=== PATIENT | female | born 1970 | race American Indian/Alaskan Native ===

== ENCOUNTER 2019-01-16 08:44 | Observation (INO) | payer OTHER ==
--- NOTE | 2019-01-16 08:49 | Event Note ---
ED Screening Note ED Screening Note: new onset esrd with hd on sat Told by Dr Rivera to come here for HD vascath r subclavian no sob no cp pmh dm htn eskd hpld This initial assessment/diagnostic orders/clinical plan/treatment(s) is/are subject to change based on patients health status, clinical progression and re- assessment by fellow clinical providers in the ED. Further treatment and workup at subsequent clinical providers discretion. Patient/guardian urged not to elope from the ED as their condition may be serious if not clinically assessed and managed. Initial orders include:
--- NOTE | 2019-01-16 09:06 | Emergency Department Report ---
ED General Adult HPI - General Chief complaint: Recheck/Abnormal Lab/Rx Stated complaint: DIALYSIS Time Seen by Provider: 01/16/19 08:59 Source: patient Mode of arrival: Ambulatory Limitations: No Limitations - History of Present Illness Initial comments: Patient is a 48-year-old that presents emergency room for dialysis. Patient states her last dialysis on Saturday. Patient states she's had 7 treatments with [facility] and was discharged home from [facility] and they told her to go to a local ER for more treatments. Patient denies any physical complaints. Patient states she just simply needs to have her dialysis done. -: Sudden Consistency: constant Improves with: other (with dialysis) Worsens with: none Associated Symptoms: denies other symptoms. denies: confusion, chest pain, cough, diaphoresis, fever/chills, headaches, loss of appetite, malaise, nausea/vomiting, rash, seizure, shortness of breath, syncope, weakness Treatments Prior to Arrival: none - Related Data Allergies Allergy/AdvReac Type Severity Reaction Status Date / Time No Known Allergies Allergy Unverified 04/26/16 09:34 ED Review of Systems ROS: Stated complaint: DIALYSIS Other details as noted in HPI Constitutional: denies: chills, fever Eyes: denies: eye pain, eye discharge, vision change ENT: denies: ear pain, throat pain Respiratory: denies: cough, shortness of breath, wheezing Cardiovascular: denies: chest pain, palpitations Endocrine: no symptoms reported Gastrointestinal: denies: abdominal pain, nausea, diarrhea Genitourinary: denies: urgency, dysuria, discharge Musculoskeletal: denies: back pain, joint swelling, arthralgia Skin: denies: rash, lesions Neurological: denies: headache, weakness, paresthesias Psychiatric: denies: anxiety, depression Hematological/Lymphatic: denies: easy bleeding, easy bruising ED Past Medical Hx - Past Medical History Previous Medical History?: Yes Hx Hypertension: Yes Hx Diabetes: Yes Hx Renal Disease: Yes - Surgical History Past Surgical History?: Yes Additional Surgical History: VAS CATH - Family History Family history: no significant - Social History Smoking Status: Never Smoker Substance Use Type: None ED Physical Exam - General Limitations: No Limitations General appearance: alert, in no apparent distress - Head Head exam: Present: atraumatic, normocephalic - Eye Eye exam: Present: normal appearance - ENT ENT exam: Present: mucous membranes moist - Neck Neck exam: Present: normal inspection - Respiratory Respiratory exam: Present: normal lung sounds bilaterally. Absent: respiratory distress - Cardiovascular Cardiovascular Exam: Present: regular rate, normal rhythm. Absent: systolic murmur, diastolic murmur, rubs, gallop - GI/Abdominal GI/Abdominal exam: Present: soft, normal bowel sounds - Extremities Exam Extremities exam: Present: normal inspection - Back Exam Back exam: Present: normal inspection - Neurological Exam Neurological exam: Present: alert, oriented X3 - Psychiatric Psychiatric exam: Present: normal affect, normal mood - Skin Skin exam: Present: warm, dry, intact, normal color. Absent: rash ED Course Vital Signs 01/16/19 01/16/19 08:49 09:20 Temperature 97.4 F L Pulse Rate 91 H Respiratory 18 Rate Blood Pressure 146/50 O2 Sat by Pulse 100 100 Oximetry - Reevaluation(s) Reevaluation #1: Discussed all results with patient. Patient will be admitted to the hospitalist service. Patient agrees to plan of care. 01/16/19 11:49 - Consultations Consultation #1: Nephrology paged. I discussed the case with nephrology. Dr. Suresh lazar wants patient admitted for dialysis and to establish outpatient dialysis clinic. 01/16/19 11:40 Consultation #2: Hospitalist consulted for admission. Hospitalist to admit patient. Hospitalist to assume care patient. 01/16/19 11:49 ED Medical Decision Making - Lab Data Result diagrams: 01/16/19 09:12 01/16/19 Unknown - Medical Decision Making Patient is a 48-year-old female Emergency room for dialysis. Patient is asymptomatic. Patient states she was told her to come to have her dialysis where she usually gets her dialysis at [facility]. Patient has not established herself with an outpatient dialysis clinic. Patient will be admitted to the hospitalist service. I discussed the case with nephrology nephrology was decreased to have dialysis here. Patient's labs were unremarkable except for consistent findings of end-stage renal disease to include anemia and elevated creatinine. - Differential Diagnosis dialysis. Critical care attestation.: If time is entered above; I have spent that time in minutes in the direct care of this critically ill patient, excluding procedure time. ED Disposition Clinical Impression: End stage renal disease CKD (chronic kidney disease) Qualifiers: Chronic kidney disease stage: stage 5, not on chronic dialysis Qualified Code(s): N18.5 - Chronic kidney disease, stage 5 Disposition: DC-09 OP ADMIT IP TO THIS HOSP Is pt being admited?: Yes Does the pt Need Aspirin: No Condition: Serious Time of Disposition: 11:52
[2019-01-16 09:34] LABS: Hematocrit 29.2 % (30.3-42.9); Hemoglobin 9.5 gm/dl (10.1-14.3); Mean Corpuscular HGB Conc 32 % (30-34); Mean Corpuscular Volume 80 fl (79-97); Platelet Count 224 K/mm3 (140-440); Red Blood Count 3.65 M/mm3 (3.65-5.03)
[2019-01-16 10:21] LABS: Alanine Aminotransferase TNR units/L (7-56); Albumin TNR g/dL (3.9-5); BUN/Creatinine Ratio TNR; Blood Urea Nitrogen TNR mg/dL (7-17); Calcium TNR mg/dL (8.4-10.2)
[2019-01-16 10:22] LABS: Hemolysis Index TNR
[2019-01-16 10:48] LABS: Albumin 3.5 g/dL (3.9-5); Calcium 9.3 mg/dL (8.4-10.2)
[2019-01-16] MEDS ORDERED: NACL 0.9% 100 ML IV PRN ×2 (13:34→14:12)
[2019-01-16] MEDS ORDERED: HEPARIN 10,000 UNITS/10 ML IV PRN ×2 (13:34)
[2019-01-16] MEDS ORDERED: PROCRIT SUB-Q PRN (13:37)
[2019-01-16 15:11] LABS: Hepatitis B Surface Antigen Non-Reactive (Negative); Hepatitis C Virus Antibody Non-Reactive (NonReactive)
--- NOTE | 2019-01-16 19:32 | History and Physical Report ---
History of Present Illness Date of examination: 01/16/19 Date of admission: 01/16/19 11:52 Chief complaint: wants HD History of present illness: Patient is a 48-year-old that presents emergency room for dialysis. Patient states her last dialysis on Saturday. Patient states she's had 7 treatments with [facility] and was discharged home from [facility] and they told her to go to a local ER for more treatments. Patient denies any physical complaints. Patient states she just simply needs to have her dialysis done. Apparently [facility] did not arrange for a HD chair. No orthopnea No fever or chills Past Medical History Previous Medical History?: Yes Hypertension: Yes Diabetes: Yes Renal Disease: Yes Surgical History Past Surgical History?: Yes Additional Surgical History: VAS CATH Family History Family history: no significant Social History Smoking Status: Never Smoker Substance Use Type: None Review of Systems ROS: Stated complaint: DIALYSIS Other details as noted in HPI Constitutional: denies: chills, fever Eyes: denies: eye pain, eye discharge, vision change ENT: denies: ear pain, throat pain Respiratory: denies: cough, shortness of breath, wheezing Cardiovascular: denies: chest pain, palpitations Endocrine: no symptoms reported Gastrointestinal: denies: abdominal pain, nausea, diarrhea Genitourinary: denies: urgency, dysuria, discharge Musculoskeletal: denies: back pain, joint swelling, arthralgia Skin: denies: rash, lesions Neurological: denies: headache, weakness, paresthesias Psychiatric: denies: anxiety, depression Hematological/Lymphatic: denies: easy bleeding, easy bruising Medications and Allergies Allergies Allergy/AdvReac Type Severity Reaction Status Date / Time No Known Allergies Allergy Unverified 04/26/16 09:34 Active Meds: Active Medications Epoetin Santos (Procrit) 10,000 unit SUB-Q LENCHO PRN PRN Reason: hemodialysis Heparin Sodium (Porcine) (Heparin 10,000 Units/10 Ml) 2,000 unit IV LENCHO PRN PRN Reason: hemodialysis Heparin Sodium (Porcine) (Heparin 10,000 Units/10 Ml) 1,000 unit IV LENCHO PRN PRN Reason: hemodialysis Sodium Chloride (Nacl 0.9%) 100 mls @ 999 mls/hr IV LENCHO PRN PRN Reason: Hypotension Exam - Constitutional Vitals: Temp Pulse Resp BP Pulse Ox 98.2 F 80 16 156/77 99 01/16/19 17:45 01/16/19 17:45 01/16/19 17:45 01/16/19 17:45 01/16/19 13:00 General appearance: Present: no acute distress, well-nourished - EENT Eyes: Present: PERRL ENT: hearing intact, clear oral mucosa - Neck Neck: Present: supple, normal ROM - Respiratory Respiratory effort: normal Respiratory: bilateral: CTA - Cardiovascular Heart rate: 78 Rhythm: regular Heart Sounds: Present: S1 & S2. Absent: rub, click - Extremities Extremities: no ischemia, pulses intact, pulses symmetrical, No edema Peripheral Pulses: within normal limits - Abdominal General gastrointestinal: Present: soft, non-tender, non-distended, normal bowel sounds Female genitourinary: Present: normal - Rectal Rectal Exam: deferred - Integumentary Integumentary: Present: clear, warm, dry - Musculoskeletal Musculoskeletal: gait normal, strength equal bilaterally - Psychiatric Psychiatric: appropriate mood/affect, intact judgment & insight - Neurologic Neurologic: CNII-XII intact, moves all extremities - Allied Health Allied health notes reviewed: nursing, case management Results - Labs CBC & Chem 7: 01/16/19 09:12 01/16/19 Unknown Labs: Laboratory Last Values WBC 11.0 K/mm3 (4.5-11.0) 01/16/19 09:12 RBC 3.65 M/mm3 (3.65-5.03) 01/16/19 09:12 Hgb 9.5 gm/dl (10.1-14.3) L 01/16/19 09:12 Hct 29.2 % (30.3-42.9) L 01/16/19 09:12 MCV 80 fl (79-97) 01/16/19 09:12 MCH 26 pg (28-32) L 01/16/19 09:12 MCHC 32 % (30-34) 01/16/19 09:12 RDW 17.0 % (13.2-15.2) H 01/16/19 09:12 Plt Count 224 K/mm3 (140-440) 01/16/19 09:12 Sodium 135 mmol/L (137-145) L 01/16/19 Unknown Potassium 4.7 mmol/L (3.6-5.0) 01/16/19 Unknown Chloride 93.3 mmol/L (98-107) L 01/16/19 Unknown Carbon Dioxide 25 mmol/L (22-30) 01/16/19 Unknown 21 mmol/L 01/16/19 Unknown BUN 30 mg/dL (7-17) H 01/16/19 Unknown 6.9 mg/dL (0.7-1.2) H 01/16/19 Unknown Estimated GFR 8 ml/min 01/16/19 Unknown 4 % 01/16/19 Unknown Glucose 225 mg/dL (65-100) H 01/16/19 Unknown Calcium 9.3 mg/dL (8.4-10.2) 01/16/19 Unknown Phosphorus 5.00 mg/dL (2.5-4.5) H 01/16/19 Unknown 0.20 mg/dL (0.1-1.2) 01/16/19 Unknown AST 19 units/L (5-40) 01/16/19 Unknown ALT 11 units/L (7-56) 01/16/19 Unknown 102 units/L (35-129) 01/16/19 Unknown NT-Pro-B Natriuret Pep 6377 pg/mL (0-900) H 01/16/19 Unknown 6.5 g/dL (6.3-8.2) 01/16/19 Unknown 3.5 g/dL (3.9-5) L 01/16/19 Unknown 1.2 % 01/16/19 Unknown Hepatitis A IgM Ab Non-reactive (NonReactive) 01/16/19 14:15 Hep Bs Antigen Non-reactive (Negative) 01/16/19 14:15 Hep B Core IgM Ab Non-reactive (NonReactive) 01/16/19 14:15 Non-reactive (NonReactive) 01/16/19 14:15 Assessment and Plan Advance Directives: Yes (FC) VTE prophylaxis?: Chemical, Not ordered Plan of care discussed with patient/family: Yes - Patient Problems (1) End stage renal disease Current Visit: Yes Status: Chronic Plan to address problem: HD arranged in Hospital Needs HD chair Placement issues agency development manager consult for placement (2) HTN (hypertension) Current Visit: Yes Status: Chronic Qualifiers: Hypertension type: essential hypertension Qualified Code(s): I10 - Essential (primary) hypertension Plan to address problem: Cont antihypertensives (3) T2DM (type 2 diabetes mellitus) Current Visit: Yes Status: Chronic Qualifiers: Diabetes mellitus terminal clerk insulin use: unspecified terminal clerk insulin use status Plan to address problem: Cont coverage Check A1c (4) DVT prophylaxis Current Visit: Yes Status: Acute Plan to address problem: On Heparin and GI propylaxis
[2019-01-16] MEDS ORDERED: REGLAN IV PRN (19:33)
[2019-01-16] MEDS ORDERED: IBUPROFEN PO PRN (19:33)
[2019-01-16] MEDS ORDERED: DILAUDID IV PRN (19:33)
[2019-01-16] MEDS ORDERED: ZOFRAN IV PRN (19:33)
[2019-01-16] MEDS ORDERED: SODIUM CHLORIDE FLUSH SYRINGE 10 ML IV PRN (19:33)
[2019-01-16] MEDS ORDERED: TYLENOL PO PRN (19:33)
[2019-01-16] MEDS: HEPARIN SUB-Q SCH (21:28)
[2019-01-16] MEDS: PEPCID PO SCH (21:28)
[2019-01-16] MEDS: SODIUM CHLORIDE FLUSH SYRINGE 10 ML IV SCH (21:29)
[2019-01-17] MEDS: HumaLOG SUB-Q SCH ×4 (07:30→22:22)
[2019-01-17] MEDS: GLUCOTROL XL PO SCH (08:00)
[2019-01-17 08:14] LABS: Albumin 3.1 g/dL (3.9-5); Calcium 8.4 mg/dL (8.4-10.2)
[2019-01-17] MEDS: PEPCID PO SCH ×2 (09:26→21:27)
[2019-01-17] MEDS: HEPARIN SUB-Q SCH ×2 (09:27→21:27)
[2019-01-17] MEDS: SODIUM CHLORIDE FLUSH SYRINGE 10 ML IV SCH ×2 (09:28→23:41)
[2019-01-17] MEDS ORDERED: COZAAR PO SCH (10:00)
--- NOTE | 2019-01-17 10:10 | Consultation ---
History of Present Illness - Reason for Consult Consult date: 01/17/19 end stage renal disease - History of Present Illness The patient is a 48 YO female with history significant for Obesity, DM type 2, HTN and ESRD who presented yesterday to [facility] for dialysis. She was recently started on hemodialysis at [facility] and was discharged her home without setting up the outpatient dialysis chair. She was dialyzed on 01/14/19 at [facility] prior to discharge. Patient received hemodialysis here yesterday. Patient denies any symptoms at this time. Patient states that she want outpatient hem odialysis chair. Past History Past Medical History: diabetes, dialysis, ESRD, hypertension, other (Obesity) Medications and Allergies Allergies Allergy/AdvReac Type Severity Reaction Status Date / Time No Known Allergies Allergy Unverified 04/26/16 09:34 Active Meds: Active Medications Acetaminophen (Tylenol) 650 mg PO Q4H PRN PRN Reason: Pain MILD(1-3)/Fever >100.5/ZURITA Epoetin Santos (Procrit) 10,000 unit SUB-Q LENCHO PRN PRN Reason: hemodialysis Famotidine (Pepcid) 10 mg PO BID [facility] Last Admin: 01/17/19 09:26 Dose: 10 mg Documented by: Glipizide (Glucotrol Xl) 5 mg PO QDDIAB [facility] Last Admin: 01/17/19 08:00 Dose: 5 mg Documented by: Heparin Sodium (Porcine) (Heparin 10,000 Units/10 Ml) 2,000 unit IV LENCHO PRN PRN Reason: hemodialysis Heparin Sodium (Porcine) (Heparin 10,000 Units/10 Ml) 1,000 unit IV LENCHO PRN PRN Reason: hemodialysis Heparin Sodium (Porcine) (Heparin) 5,000 unit SUB-Q Q12HR [facility] Last Admin: 01/17/19 09:27 Dose: 5,000 unit Documented by: Hydromorphone HCl (Dilaudid) 0.5 mg IV Q3H PRN PRN Reason: Pain , Severe (7-10) Sodium Chloride (Nacl 0.9%) 100 mls @ 999 mls/hr IV LENCHO PRN PRN Reason: Hypotension Ibuprofen (Ibuprofen) 600 mg PO Q6H PRN PRN Reason: Pain, Mild (1-3) Insulin Human Lispro (Humalog) 0 unit SUB-Q [facility]; Protocol Last Admin: 01/17/19 07:30 Dose: Not Given Documented by: Losartan Potassium (Cozaar) 25 mg PO QDAY [facility] Last Admin: 01/17/19 09:27 Dose: 25 mg Documented by: Metoclopramide HCl (Reglan) 5 mg IV Q6H PRN PRN Reason: Nausea And Vomiting Ondansetron HCl (Zofran) 4 mg IV Q8H PRN PRN Reason: Nausea And Vomiting Sodium Chloride (Sodium Chloride Flush Syringe 10 Ml) 10 ml IV BID [facility] Last Admin: 01/17/19 09:28 Dose: 10 ml Documented by: Sodium Chloride (Sodium Chloride Flush Syringe 10 Ml) 10 ml IV PRN PRN PRN Reason: LINE FLUSH Review of Systems Constitutional: no weight loss, no weight gain, no fever, no chills, no anorexia, no weakness Breasts: deferred Cardiovascular: high blood pressure, no chest pain, no orthopnea, no edema, no syncope, no lightheadedness, no shortness of breath, no dyspnea on exertion, no leg edema Respiratory: no cough, no hemoptysis, no shortness of breath, no dyspnea on exertion Gastrointestinal: no abdominal pain, no nausea, no vomiting, no diarrhea, no melena Rectal: no bleeding Musculoskeletal: no morning stiffness, no muscle weakness, no prior amputations Integumentary: no rash, no wounds, no jaundice Neurological: no head injury, no paralysis, no weakness, no seizures, no aphasia, no change in speech, no change in mentation, no confusion, no memory loss Exam - Vital Signs Vital signs: Vital Signs Temp Pulse Resp BP Pulse Ox 97.4 F L 91 H 18 146/50 100 01/16/19 08:49 01/16/19 08:49 01/16/19 08:49 01/16/19 08:49 01/16/19 08:49 - General Appearance General appearance: well-developed, well-nourished, appears stated age, obese, other (no distress, R IJ tunnel catheter) EENT: ATNC, PERRL, mucous membranes moist, hearing intact, vision intact Neck: Present: neck supple, trachea midline Respiratory: Clear to Ascultation Heart: regular, S1S2, no murmurs Gastrointestinal: Present: normoactive bowel sounds. Absent: tenderness, distended Integumentary: no rash, warm and dry Neurologic: no focal deficit, no asterixis, alert and oriented x3 Musculoskeletal: Present: other (no edema) Psychiatric: cooperative Results - Lab Results 01/16/19 09:12 01/17/19 06:55 Most recent lab results Calcium 8.4 mg/dL (8.4-10.2) 01/17/19 06:55 Phosphorus 5.00 mg/dL (2.5-4.5) H 01/16/19 Unknown Assessment and Plan 1. ESRD: Recently started on hemodialysis. Last dialyzed yesterday. Need outpatient HD chair. 2. FEN: Euvolemic. Monitor. 3. Anemia: Epogen with HD. 4. Hypertension: Increase Losartan. 5. DM type 2.
--- NOTE | 2019-01-17 14:06 | Progress Note ---
Assessment and Plan Assessment and plan: Patient is a 48-year-old that presents emergency room for dialysis. Patient states her last dialysis on Saturday. Patient states she's had 7 treatments at [facility] and was discharged home from [facility] and they told her to go to a local ER for more treatments. Patient denies any physical complaints. Patient states she just simply needs to have her dialysis done. Apparently [facility] did not arrange for a HD chair. No orthopnea. No fever or chills (1) End stage renal disease Discussed with contractor broomcorn threshing; and he wants hemodialysis chairs to be arranged before discharge airline manager consult for placement (2) HTN (hypertension) Controlled Cont antihypertensives (3) T2DM (type 2 diabetes mellitus) Cont sliding scale insulin coverage A1c is 6.4 (4) DVT prophylaxis On Heparin Disposition; discharged after HD chair is arranged. History Interval history: Patient was seen and evaluated this morning, patient didn't have any complaints. No shortness of breath or chest pain. Hospitalist Physical - Physical exam Narrative exam: Not in cardiopulmonary distress. The patient is obese. Vital signs as documented. Head exam is unremarkable. No scleral icterus . Neck is without jugular venous distension, thyromegaly, or carotid bruits. Lungs are clear to auscultation. Cardiac exam reveals regular rate and Rhythm. First and second heart sounds nor mal. No murmurs, rubs or gallops. Abdominal exam reveals normal bowel sounds, no masses, no organomegaly and no aortic enlargement. Extremities are nonedematous and both femoral and pedal pulses are normal. INFORMATION MANAGEMENT SPECIALIST: Alert and oriented 3. No focal weakness. - Constitutional Vitals: Temp Pulse Resp BP Pulse Ox 97.0 F L 89 20 143/72 100 01/17/19 11:47 01/17/19 11:47 01/17/19 11:47 01/17/19 11:47 01/17/19 11:47 General appearance: Present: no acute distress, well-nourished Results - Labs CBC & Chem 7: 01/16/19 09:12 01/17/19 06:55 Labs: Laboratory Last Values WBC 11.0 K/mm3 (4.5-11.0) 01/16/19 09:12 RBC 3.65 M/mm3 (3.65-5.03) 01/16/19 09:12 Hgb 9.5 gm/dl (10.1-14.3) L 01/16/19 09:12 Hct 29.2 % (30.3-42.9) L 01/16/19 09:12 MCV 80 fl (79-97) 01/16/19 09:12 MCH 26 pg (28-32) L 01/16/19 09:12 MCHC 32 % (30-34) 01/16/19 09:12 RDW 17.0 % (13.2-15.2) H 01/16/19 09:12 Plt Count 224 K/mm3 (140-440) 01/16/19 09:12 Sodium 137 mmol/L (137-145) 01/17/19 06:55 Potassium 3.7 mmol/L (3.6-5.0) D 01/17/19 06:55 Chloride 96.3 mmol/L (98-107) L 01/17/19 06:55 Carbon Dioxide 26 mmol/L (22-30) 01/17/19 06:55 18 mmol/L 01/17/19 06:55 BUN 18 mg/dL (7-17) H 01/17/19 06:55 5.8 mg/dL (0.7-1.2) H 01/17/19 06:55 Estimated GFR 9 ml/min 01/17/19 06:55 3 % 01/17/19 06:55 Glucose 135 mg/dL (65-100) H 01/17/19 06:55 POC Glucose 219 (70-105) H 01/17/19 11:54 6.4 % (4-6) H 01/16/19 09:12 Calcium 8.4 mg/dL (8.4-10.2) 01/17/19 06:55 Phosphorus 5.00 mg/dL (2.5-4.5) H 01/16/19 Unknown 0.30 mg/dL (0.1-1.2) 01/17/19 06:55 AST 17 units/L (5-40) 01/17/19 06:55 ALT 9 units/L (7-56) 01/17/19 06:55 85 units/L (35-129) 01/17/19 06:55 NT-Pro-B Natriuret Pep 6377 pg/mL (0-900) H 01/16/19 Unknown 6.3 g/dL (6.3-8.2) 01/17/19 06:55 3.1 g/dL (3.9-5) L 01/17/19 06:55 1.0 % 01/17/19 06:55 Hepatitis A IgM Ab Non-reactive (NonReactive) 01/16/19 14:15 Hep Bs Antigen Non-reactive (Negative) 01/16/19 14:15 Hep B Core IgM Ab Non-reactive (NonReactive) 01/16/19 14:15 Non-reactive (NonReactive) 01/16/19 14:15 Active Medications - Current Medications Current Medications: Generic Name Dose Route Start Last Admin Trade Name Freq PRN Reason Stop Dose Admin Acetaminophen 650 mg 01/16/19 19:33 Tylenol PO Q4H PRN Pain MILD(1-3)/Fever >100.5/ZURITA Epoetin Santos 10,000 unit 01/16/19 13:37 Procrit SUB-Q LENCHO PRN hemodialysis Famotidine 10 mg 01/16/19 22:00 01/17/19 09:26 Pepcid PO 10 mg BID TIMMY Administration Glipizide 5 mg 01/17/19 08:00 01/17/19 08:00 Glucotrol Xl PO 5 mg QDDIAB TIMMY Administration Heparin Sodium (Porcine) 2,000 unit 01/16/19 13:34 Heparin 10,000 Units/10 Ml IV LENCHO PRN hemodialysis Heparin Sodium (Porcine) 1,000 unit 01/16/19 13:34 Heparin 10,000 Units/10 Ml IV LENCHO PRN hemodialysis Heparin Sodium (Porcine) 5,000 unit 01/16/19 22:00 01/17/19 09:27 Heparin SUB-Q 5,000 unit Q12HR TIMMY Administration Hydromorphone HCl 0.5 mg 01/16/19 19:33 Dilaudid IV Q3H PRN Pain , Severe (7-10) Sodium Chloride 100 mls @ 999 mls/hr 01/16/19 14:12 Nacl 0.9% IV LENCHO PRN Hypotension Ibuprofen 600 mg 01/16/19 19:33 Ibuprofen PO Q6H PRN Pain, Mild (1-3) Insulin Human Lispro 0 unit 01/17/19 07:30 01/17/19 11:30 Humalog SUB-Q 3 unit ACHS TIMMY Administration Protocol Losartan Potassium 25 mg 06/22/19 10:00 01/17/19 09:27 Cozaar PO 25 mg QDAY TIMMY Administration Metoclopramide HCl 5 mg 01/16/19 19:33 Reglan IV Q6H PRN Nausea And Vomiting Ondansetron HCl 4 mg 01/16/19 19:33 Zofran IV Q8H PRN Nausea And Vomiting Sodium Chloride 10 ml 01/16/19 22:00 01/17/19 09:28 Sodium Chloride Flush Syringe 10 Ml IV 10 ml BID TIMMY Administration Sodium Chloride 10 ml 01/16/19 19:33 Sodium Chloride Flush Syringe 10 Ml IV PRN PRN LINE FLUSH Nutrition/Malnutrition Assess - Dietary Evaluation Nutrition/Malnutrition Findings: Nutrition Notes Start: 01/17/19 12:50 Freq: Status: Active Protocol: Document 01/17/19 12:50 LP (Rec: 01/17/19 12:51 LP [id number]) Nutrition Notes Need for Assessment generated from: implementation specialist Initial or Follow up Brief Note Current Diagnosis CKD (stage V CKD),Diabetes, Hypertension Other Pertinent Diagnosis on HD Current Diet Renal Subjective/Other Information Screen for MST. 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 Wt loss due to being on renal diet. Pt denies need for education at this time. Nutrition Intervention Revisit per MD consult or patient Sign Off request:
[2019-01-17] MEDS ORDERED: COZAAR PO ONE (19:00)
[2019-01-18] MEDS: GLUCOTROL XL PO SCH (08:00)
[2019-01-18 08:02] LABS: Calcium 8.3 mg/dL (8.4-10.2)
[2019-01-18] MEDS: HumaLOG SUB-Q SCH ×4 (08:30→22:19)
[2019-01-18] MEDS: PEPCID PO SCH ×2 (09:58→22:18)
[2019-01-18] MEDS: HEPARIN SUB-Q SCH ×2 (09:59→22:19)
[2019-01-18] MEDS: COZAAR PO SCH (09:59)
[2019-01-18] MEDS: SODIUM CHLORIDE FLUSH SYRINGE 10 ML IV SCH ×2 (09:59→22:19)
--- NOTE | 2019-01-18 12:11 | Progress Note ---
Assessment and Plan 1. ESRD: Recently started on hemodialysis. Last dialyzed on 01/16/19. Need outpatient HD chair. 2. FEN: Euvolemic. Monitor. 3. Anemia: Epogen with HD. 4. Hypertension: Losartan. 5. DM type 2. Subjective Date of service: 01/18/19 Interval history: Patient was seen and examined at the bedside. Doing ok. Objective - Vital Signs Vital signs: Vital Signs - 12hr 01/18/19 05:00 Temperature 98.4 F Pulse Rate 86 Respiratory 24 Rate Blood Pressure 146/61 O2 Sat by Pulse 98 Oximetry - General Appearance General appearance: well-developed, well-nourished, appears stated age, obese, other (no distress, R IJ tunnel catheter) EENT: ATNC, PERRL, mucous membranes moist, hearing intact, vision intact Neck: supple Respiratory: Present: Clear to Ascultation Cardiology: regular, S1S2, no murmurs Gastrointestinal: normoactive bowel sounds, no tenderness, no distended Integumentary: no rash, warm and dry Neurologic: no focal deficit, no asterixis, alert and oriented x3 Musculoskeletal: other (no edema) - Lab 01/16/19 09:12 01/18/19 06:52 Most recent lab results Calcium 8.3 mg/dL (8.4-10.2) L 01/18/19 06:52 Phosphorus 5.00 mg/dL (2.5-4.5) H 01/16/19 Unknown Medications & Allergies - Medications Allergies/Adverse Reactions: Allergies No Known Allergies Allergy (Unverified 04/26/16 09:34) Active Medications: Generic Name Dose Route Start Last Admin Trade Name Freq PRN Reason Stop Dose Admin Acetaminophen 650 mg 01/16/19 19:33 Tylenol PO Q4H PRN Pain MILD(1-3)/Fever >100.5/ZURITA Epoetin Santos 10,000 unit 01/16/19 13:37 Procrit SUB-Q LENCHO PRN hemodialysis Famotidine 10 mg 01/16/19 22:00 01/18/19 09:58 Pepcid PO 10 mg BID TIMMY Administration Glipizide 5 mg 01/17/19 08:00 01/18/19 08:00 Glucotrol Xl PO 5 mg QDDIAB TIMMY Administration Heparin Sodium (Porcine) 2,000 unit 01/16/19 13:34 Heparin 10,000 Units/10 Ml IV LENCHO PRN hemodialysis Heparin Sodium (Porcine) 1,000 unit 01/16/19 13:34 Heparin 10,000 Units/10 Ml IV LENCHO PRN hemodialysis Heparin Sodium (Porcine) 5,000 unit 01/16/19 22:00 01/18/19 09:59 Heparin SUB-Q 5,000 unit Q12HR TIMMY Administration Hydromorphone HCl 0.5 mg 01/16/19 19:33 Dilaudid IV Q3H PRN Pain , Severe (7-10) Sodium Chloride 100 mls @ 999 mls/hr 01/16/19 14:12 Nacl 0.9% IV LENCHO PRN Hypotension Insulin Human Lispro 0 unit 01/17/19 07:30 01/18/19 08:30 Humalog SUB-Q Not Given ACHS [facility] Protocol Losartan Potassium 100 mg 01/18/19 10:00 01/18/19 09:59 Cozaar PO 100 mg QDAY TIMMY Administration Metoclopramide HCl 5 mg 01/16/19 19:33 Reglan IV Q6H PRN Nausea And Vomiting Ondansetron HCl 4 mg 01/16/19 19:33 Zofran IV Q8H PRN Nausea And Vomiting Sodium Chloride 10 ml 01/16/19 22:00 01/18/19 09:59 Sodium Chloride Flush Syringe 10 Ml IV 10 ml BID TIMMY Administration Sodium Chloride 10 ml 01/16/19 19:33 Sodium Chloride Flush Syringe 10 Ml IV PRN PRN LINE FLUSH
--- NOTE | 2019-01-18 13:08 | Progress Note ---
Assessment and Plan Assessment and plan: Patient is a 48-year-old that presents emergency room for dialysis. Patient states her last dialysis on Saturday. Patient states she's had 7 treatments at [facility] and was discharged home from [facility] and they told her to go to a local ER for more treatments. Patient denies any physical complaints. Patient states she just simply needs to have her dialysis done. Apparently [facility] did not arrange for a HD chair. No orthopnea. No fever or chills ) End stage renal disease cont HD, needs outpatient HD set up HTN (hypertension) Controlled, Cont antihypertensives T2DM (type 2 diabetes mellitus) Cont sliding scale insulin coverage A1c is 6.4 DVT prophylaxis On Heparin Disposition; discharged after HD chair is arranged. History Interval history: Review of systems Constitutional: No fevers, no malaise, no joint pains CVS: No chest pain, no orthopnea, no dyspnea on exertion, no pedal edema GI: No abdominal pain, no diarrhea, no vomiting, no constipation Respiratory: no wheezing, no coughing Hospitalist Physical - Physical exam Narrative exam: General.: Appears well, no distress, nontoxic HEENT: Moist mucous membranes, extraocular muscles intact, no lymphadenopathy Neck: supple Cardiac: S1-S2 heard Lungs: clear to auscultation bilaterally Abdomen: soft , nontender, nondistended, bowel sounds positive Extremities: no edema clubbing or cyanosis Skin: no rash or lesions Neurologic: no gross focal deficits Psych: calm, and cooperative - Constitutional Vitals: Temp Pulse Resp BP Pulse Ox 98.4 F 86 24 146/61 98 01/18/19 05:00 01/18/19 05:00 01/18/19 05:00 01/18/19 05:00 01/18/19 05:00 General appearance: Present: no acute distress, well-nourished Results - Labs CBC & Chem 7: 01/16/19 09:12 01/18/19 06:52 Labs: Laboratory Last Values WBC 11.0 K/mm3 (4.5-11.0) 01/16/19 09:12 RBC 3.65 M/mm3 (3.65-5.03) 01/16/19 09:12 Hgb 9.5 gm/dl (10.1-14.3) L 01/16/19 09:12 Hct 29.2 % (30.3-42.9) L 01/16/19 09:12 MCV 80 fl (79-97) 01/16/19 09:12 MCH 26 pg (28-32) L 01/16/19 09:12 MCHC 32 % (30-34) 01/16/19 09:12 RDW 17.0 % (13.2-15.2) H 01/16/19 09:12 Plt Count 224 K/mm3 (140-440) 01/16/19 09:12 Sodium 135 mmol/L (137-145) L 01/18/19 06:52 Potassium 3.6 mmol/L (3.6-5.0) 01/18/19 06:52 Chloride 94.0 mmol/L (98-107) L 01/18/19 06:52 Carbon Dioxide 23 mmol/L (22-30) 01/18/19 06:52 22 mmol/L 01/18/19 06:52 BUN 26 mg/dL (7-17) H 01/18/19 06:52 7.3 mg/dL (0.7-1.2) H 01/18/19 06:52 Estimated GFR 7 ml/min 01/18/19 06:52 4 % 01/18/19 06:52 Glucose 88 mg/dL (65-100) 01/18/19 06:52 POC Glucose 195 (70-105) H 01/18/19 12:10 6.4 % (4-6) H 01/16/19 09:12 Calcium 8.3 mg/dL (8.4-10.2) L 01/18/19 06:52 Phosphorus 5.00 mg/dL (2.5-4.5) H 01/16/19 Unknown 0.30 mg/dL (0.1-1.2) 01/17/19 06:55 AST 17 units/L (5-40) 01/17/19 06:55 ALT 9 units/L (7-56) 01/17/19 06:55 85 units/L (35-129) 01/17/19 06:55 NT-Pro-B Natriuret Pep 6377 pg/mL (0-900) H 01/16/19 Unknown 6.3 g/dL (6.3-8.2) 01/17/19 06:55 3.1 g/dL (3.9-5) L 01/17/19 06:55 1.0 % 01/17/19 06:55 Hepatitis A IgM Ab Non-reactive (NonReactive) 01/16/19 14:15 Hep Bs Antigen Non-reactive (Negative) 01/16/19 14:15 Hep B Core IgM Ab Non-reactive (NonReactive) 01/16/19 14:15 Non-reactive (NonReactive) 01/16/19 14:15 Active Medications - Current Medications Current Medications: Generic Name Dose Route Start Last Admin Trade Name Freq PRN Reason Stop Dose Admin Acetaminophen 650 mg 01/16/19 19:33 Tylenol PO Q4H PRN Pain MILD(1-3)/Fever >100.5/ZURITA Epoetin Santos 10,000 unit 01/16/19 13:37 Procrit SUB-Q LENCHO PRN hemodialysis Famotidine 10 mg 01/16/19 22:00 01/18/19 09:58 Pepcid PO 10 mg BID TIMMY Administration Glipizide 5 mg 01/17/19 08:00 01/18/19 08:00 Glucotrol Xl PO 5 mg QDDIAB TIMMY Administration Heparin Sodium (Porcine) 2,000 unit 01/16/19 13:34 Heparin 10,000 Units/10 Ml IV LENCHO PRN hemodialysis Heparin Sodium (Porcine) 1,000 unit 01/16/19 13:34 Heparin 10,000 Units/10 Ml IV LENCHO PRN hemodialysis Heparin Sodium (Porcine) 5,000 unit 01/16/19 22:00 01/18/19 09:59 Heparin SUB-Q 5,000 unit Q12HR TIMMY Administration Hydromorphone HCl 0.5 mg 01/16/19 19:33 Dilaudid IV Q3H PRN Pain , Severe (7-10) Sodium Chloride 100 mls @ 999 mls/hr 01/16/19 14:12 Nacl 0.9% IV LENCHO PRN Hypotension Insulin Human Lispro 0 unit 01/17/19 07:30 01/18/19 12:30 Humalog SUB-Q 2 unit ACHS TIMMY Administration Protocol Losartan Potassium 100 mg 01/18/19 10:00 01/18/19 09:59 Cozaar PO 100 mg QDAY TIMMY Administration Metoclopramide HCl 5 mg 01/16/19 19:33 Reglan IV Q6H PRN Nausea And Vomiting Ondansetron HCl 4 mg 01/16/19 19:33 Zofran IV Q8H PRN Nausea And Vomiting Sodium Chloride 10 ml 01/16/19 22:00 01/18/19 09:59 Sodium Chloride Flush Syringe 10 Ml IV 10 ml BID TIMMY Administration Sodium Chloride 10 ml 01/16/19 19:33 Sodium Chloride Flush Syringe 10 Ml IV PRN PRN LINE FLUSH Nutrition/Malnutrition Assess - Dietary Evaluation Nutrition/Malnutrition Findings: Nutrition Notes Start: 01/17/19 12:50 Freq: Status: Active Protocol: Document 01/17/19 12:50 LP (Rec: 01/17/19 12:51 LP [id number]) Nutrition Notes Need for Assessment generated from: senior hr manager Initial or Follow up Brief Note Current Diagnosis CKD (stage V CKD),Diabetes, Hypertension Other Pertinent Diagnosis on HD Current Diet Renal Subjective/Other Information Screen for MST. 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 Wt loss due to being on renal diet. Pt denies need for education at this time. Nutrition Intervention Revisit per MD consult or patient Sign Off request:
[2019-01-19] MEDS: HumaLOG SUB-Q SCH ×4 (08:00→21:06)
[2019-01-19] MEDS: GLUCOTROL XL PO SCH (09:47)
[2019-01-19] MEDS: PEPCID PO SCH ×2 (09:47→21:07)
[2019-01-19] MEDS: HEPARIN SUB-Q SCH ×2 (09:50→21:06)
--- NOTE | 2019-01-19 09:50 | Progress Note ---
Assessment and Plan 1. ESRD: Recently started on hemodialysis. Last dialyzed on 01/16/19. HD today. Need outpatient HD chair. 2. FEN: Euvolemic. Monitor. 3. Anemia: Epogen with HD. 4. Hypertension: Losartan. 5. DM type 2. Subjective Date of service: 01/19/19 Interval history: Patient was seen and examined at the bedside. Doing ok. Objective - Vital Signs Vital signs: Vital Signs - 12hr 01/19/19 04:36 Temperature 97.8 F Pulse Rate 90 Respiratory 24 Rate Blood Pressure 163/87 O2 Sat by Pulse 100 Oximetry - General Appearance General appearance: well-developed, well-nourished, appears stated age, obese, other (no distress, R IJ tunnel catheter) EENT: ATNC, PERRL, mucous membranes moist, hearing intact, vision intact Neck: supple Respiratory: Present: Clear to Ascultation Cardiology: regular, S1S2, no murmurs Gastrointestinal: normoactive bowel sounds, no tenderness, no distended, obese Integumentary: no rash, warm and dry Neurologic: no focal deficit, no asterixis, alert and oriented x3 Musculoskeletal: other (L arm AVF, no edema) Psychiatric: cooperative - Lab 01/16/19 09:12 01/18/19 06:52 Most recent lab results Calcium 8.3 mg/dL (8.4-10.2) L 01/18/19 06:52 Phosphorus 5.00 mg/dL (2.5-4.5) H 01/16/19 Unknown Medications & Allergies - Medications Allergies/Adverse Reactions: Allergies No Known Allergies Allergy (Unverified 04/26/16 09:34) Home Medications: Home Medications Medication Instructions Recorded Confirmed Last Taken Type Calcium Acetate [Phoslo] 1,334 mg PO TID 01/19/19 01/19/19 Unknown History Isosorbide Mononitrate 30 mg PO QDAY 01/19/19 01/19/19 Unknown History Linagliptin [Tradjenta] 5 mg PO QDAY 01/19/19 01/19/19 Unknown History Losartan [Cozaar] 50 mg PO QDAY 01/19/19 01/19/19 Unknown History Metoprolol [Lopressor TAB] 50 mg PO Q12HR 01/19/19 01/19/19 Unknown History Torsemide [Demadex] 100 mg PO QDAY 01/19/19 01/19/19 Unknown History amLODIPine [Norvasc] 10 mg PO QDAY 01/19/19 01/19/19 Unknown History Active Medications: Generic Name Dose Route Start Last Admin Trade Name Freq PRN Reason Stop Dose Admin Acetaminophen 650 mg 01/16/19 19:33 Tylenol PO Q4H PRN Pain MILD(1-3)/Fever >100.5/ZURITA Epoetin Santos 10,000 unit 01/16/19 13:37 Procrit SUB-Q LENCHO PRN hemodialysis Famotidine 10 mg 01/16/19 22:00 01/19/19 09:47 Pepcid PO 10 mg BID TIMMY Administration Glipizide 5 mg 01/17/19 08:00 01/19/19 09:47 Glucotrol Xl PO 5 mg QDDIAB TIMMY Administration Heparin Sodium (Porcine) 2,000 unit 01/16/19 13:34 Heparin 10,000 Units/10 Ml IV LENCHO PRN hemodialysis Heparin Sodium (Porcine) 1,000 unit 01/16/19 13:34 Heparin 10,000 Units/10 Ml IV LENCHO PRN hemodialysis Heparin Sodium (Porcine) 5,000 unit 01/16/19 22:00 01/18/19 22:19 Heparin SUB-Q 5,000 unit Q12HR TIMMY Administration Hydromorphone HCl 0.5 mg 01/16/19 19:33 Dilaudid IV Q3H PRN Pain , Severe (7-10) Sodium Chloride 100 mls @ 999 mls/hr 01/16/19 14:12 Nacl 0.9% IV LENCHO PRN Hypotension Insulin Human Lispro 0 unit 01/17/19 07:30 01/19/19 08:00 Humalog SUB-Q Not Given ACHS [facility] Protocol Losartan Potassium 100 mg 01/18/19 10:00 01/18/19 09:59 Cozaar PO 100 mg QDAY TIMMY Administration Metoclopramide HCl 5 mg 01/16/19 19:33 Reglan IV Q6H PRN Nausea And Vomiting Ondansetron HCl 4 mg 01/16/19 19:33 Zofran IV Q8H PRN Nausea And Vomiting Sodium Chloride 10 ml 01/16/19 22:00 01/18/19 22:19 Sodium Chloride Flush Syringe 10 Ml IV 10 ml BID TIMMY Administration Sodium Chloride 10 ml 01/16/19 19:33 Sodium Chloride Flush Syringe 10 Ml IV PRN PRN LINE FLUSH
[2019-01-19] MEDS: COZAAR PO SCH (10:07)
[2019-01-19] MEDS ORDERED: NACL 0.9% 100 ML IV PRN (12:17)
[2019-01-19] MEDS ORDERED: APRESOLINE IV PRN (14:09)
--- NOTE | 2019-01-19 14:12 | Progress Note ---
Assessment and Plan Assessment and plan: Patient is a 48-year-old that presents emergency room for dialysis. Patient states her last dialysis on Saturday. Patient states she's had 7 treatments at [facility] and was discharged home from [facility] and they told her to go to a local ER for more treatments. Patient denies any physical complaints. Patient states she just simply needs to have her dialysis done. Apparently [facility] did not arrange for a HD chair. No orthopnea. No fever or chills ) End stage renal disease cont HD, needs outpatient HD set up HTN (hypertension), with urgency optimized bp meds T2DM (type 2 diabetes mellitus) Cont sliding scale insulin coverage A1c is 6.4 DVT prophylaxis On Heparin Disposition; discharged after HD chair is arranged. History Interval history: Review of systems Constitutional: No fevers, no malaise, no joint pains CVS: No chest pain, no orthopnea, no dyspnea on exertion, no pedal edema GI: No abdominal pain, no diarrhea, no vomiting, no constipation Respiratory: no wheezing, no coughing Hospitalist Physical - Physical exam Narrative exam: General.: Appears well, no distress, nontoxic HEENT: Moist mucous membranes, extraocular muscles intact, no lymphadenopathy Neck: supple Cardiac: S1-S2 heard Lungs: clear to auscultation bilaterally Abdomen: soft , nontender, nondistended, bowel sounds positive Extremities: no edema clubbing or cyanosis Skin: no rash or lesions Neurologic: no gross focal deficits Psych: calm, and cooperative - Constitutional Vitals: Temp Pulse Resp BP Pulse Ox 98.0 F 85 20 174/90 100 01/19/19 12:32 01/19/19 12:32 01/19/19 12:32 01/19/19 12:32 01/19/19 12:32 General appearance: Present: no acute distress, well-nourished Results - Labs CBC & Chem 7: 01/16/19 09:12 01/18/19 06:52 Labs: Laboratory Last Values WBC 11.0 K/mm3 (4.5-11.0) 01/16/19 09:12 RBC 3.65 M/mm3 (3.65-5.03) 01/16/19 09:12 Hgb 9.5 gm/dl (10.1-14.3) L 01/16/19 09:12 Hct 29.2 % (30.3-42.9) L 01/16/19 09:12 MCV 80 fl (79-97) 01/16/19 09:12 MCH 26 pg (28-32) L 01/16/19 09:12 MCHC 32 % (30-34) 01/16/19 09:12 RDW 17.0 % (13.2-15.2) H 01/16/19 09:12 Plt Count 224 K/mm3 (140-440) 01/16/19 09:12 Sodium 135 mmol/L (137-145) L 01/18/19 06:52 Potassium 3.6 mmol/L (3.6-5.0) 01/18/19 06:52 Chloride 94.0 mmol/L (98-107) L 01/18/19 06:52 Carbon Dioxide 23 mmol/L (22-30) 01/18/19 06:52 22 mmol/L 01/18/19 06:52 BUN 26 mg/dL (7-17) H 01/18/19 06:52 7.3 mg/dL (0.7-1.2) H 01/18/19 06:52 Estimated GFR 7 ml/min 01/18/19 06:52 4 % 01/18/19 06:52 Glucose 88 mg/dL (65-100) 01/18/19 06:52 POC Glucose 159 (70-105) H 01/19/19 12:37 6.4 % (4-6) H 01/16/19 09:12 Calcium 8.3 mg/dL (8.4-10.2) L 01/18/19 06:52 Phosphorus 5.00 mg/dL (2.5-4.5) H 01/16/19 Unknown 0.30 mg/dL (0.1-1.2) 01/17/19 06:55 AST 17 units/L (5-40) 01/17/19 06:55 ALT 9 units/L (7-56) 01/17/19 06:55 85 units/L (35-129) 01/17/19 06:55 NT-Pro-B Natriuret Pep 6377 pg/mL (0-900) H 01/16/19 Unknown 6.3 g/dL (6.3-8.2) 01/17/19 06:55 3.1 g/dL (3.9-5) L 01/17/19 06:55 1.0 % 01/17/19 06:55 Hepatitis A IgM Ab Non-reactive (NonReactive) 01/16/19 14:15 Hep Bs Antigen Non-reactive (Negative) 01/16/19 14:15 Hep B Core IgM Ab Non-reactive (NonReactive) 01/16/19 14:15 Non-reactive (NonReactive) 01/16/19 14:15 Active Medications - Current Medications Current Medications: Generic Name Dose Route Start Last Admin Trade Name Freq PRN Reason Stop Dose Admin Acetaminophen 650 mg 01/16/19 19:33 Tylenol PO Q4H PRN Pain MILD(1-3)/Fever >100.5/ZURITA Epoetin Santos 10,000 unit 01/16/19 13:37 Procrit SUB-Q LENCHO PRN hemodialysis Famotidine 10 mg 01/16/19 22:00 01/19/19 09:47 Pepcid PO 10 mg BID TIMMY Administration Glipizide 5 mg 01/17/19 08:00 01/19/19 09:47 Glucotrol Xl PO 5 mg QDDIAB TIMMY Administration Heparin Sodium (Porcine) 2,000 unit 01/16/19 13:34 Heparin 10,000 Units/10 Ml IV LENCHO PRN hemodialysis Heparin Sodium (Porcine) 1,000 unit 01/16/19 13:34 Heparin 10,000 Units/10 Ml IV LENCHO PRN hemodialysis Heparin Sodium (Porcine) 5,000 unit 01/16/19 22:00 01/19/19 09:50 Heparin SUB-Q 5,000 unit Q12HR TIMMY Administration Hydralazine HCl 10 mg 01/19/19 14:09 Apresoline IV Q4HR PRN BP >160/100 Hydromorphone HCl 0.5 mg 01/16/19 19:33 Dilaudid IV Q3H PRN Pain , Severe (7-10) Sodium Chloride 100 mls @ 999 mls/hr 01/19/19 12:17 Nacl 0.9% IV LENCHO PRN Hypotension Insulin Human Lispro 0 unit 01/17/19 07:30 01/19/19 08:00 Humalog SUB-Q Not Given ACHS [facility] Protocol Metoclopramide HCl 5 mg 01/16/19 19:33 Reglan IV Q6H PRN Nausea And Vomiting Ondansetron HCl 4 mg 01/16/19 19:33 Zofran IV Q8H PRN Nausea And Vomiting Sodium Chloride 10 ml 01/16/19 22:00 01/18/19 22:19 Sodium Chloride Flush Syringe 10 Ml IV 10 ml BID TIMMY Administration Sodium Chloride 10 ml 01/16/19 19:33 Sodium Chloride Flush Syringe 10 Ml IV PRN PRN LINE FLUSH Valsartan 160 mg 01/19/19 22:00 Diovan PO BID TIMMY Nutrition/Malnutrition Assess - Dietary Evaluation Nutrition/Malnutrition Findings: Nutrition Notes Start: 01/17/19 12:50 Freq: Status: Active Protocol: Document 01/17/19 12:50 LP (Rec: 01/17/19 12:51 LP [id number]) Nutrition Notes Need for Assessment generated from: toby maker Initial or Follow up Brief Note Current Diagnosis CKD (stage V CKD),Diabetes, Hypertension Other Pertinent Diagnosis on HD Current Diet Renal Subjective/Other Information Screen for MST. 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 Wt loss due to being on renal diet. Pt denies need for education at this time. Nutrition Intervention Revisit per MD consult or patient Sign Off request:
[2019-01-19] MEDS ORDERED: NACL 0.9 (PRIMING MACHINE ONLY DIALYSIS) MC ONE (17:39)
[2019-01-19] MEDS: SODIUM CHLORIDE FLUSH SYRINGE 10 ML IV SCH ×2 (18:27→21:09)
[2019-01-19] MEDS: DIOVAN PO SCH (21:07)
--- NOTE | 2019-01-20 07:49 | XRay Report ---
PROCEDURE: XR CHEST ROUTINE 2V TECHNIQUE: PA and lateral chest radiographs were obtained. HISTORY: r/o TB/Hemodialysis COMPARISONS: None. FINDINGS: Heart: Normal. Mediastinum/Vessels: Normal. Lungs/Pleural space: Normal. Bony thorax: No acute osseous abnormality. There is a venous catheter in place with the tip in the distal SVC. IMPRESSION: No acute cardiopulmonary process.. This document is electronically signed by Cosme Winn MD., January 20 2019 07:47:43 AM ET
[2019-01-20] MEDS: HumaLOG SUB-Q SCH ×3 (08:48→17:58)
[2019-01-20] MEDS: GLUCOTROL XL PO SCH ×2 (10:15→10:18)
[2019-01-20] MEDS: PEPCID PO SCH (10:15)
[2019-01-20] MEDS: HEPARIN SUB-Q SCH (10:15)
[2019-01-20] MEDS: SODIUM CHLORIDE FLUSH SYRINGE 10 ML IV SCH (10:19)
[2019-01-20] MEDS: DIOVAN PO SCH (10:23)
--- NOTE | 2019-01-20 14:17 | Progress Note ---
Assessment and Plan End stage renal disease cont HD, needs outpatient HD set up HTN (hypertension), with urgency optimized bp meds T2DM (type 2 diabetes mellitus) Cont sliding scale insulin coverage A1c is 6.4 DVT prophylaxis On Heparin Disposition; discharged after HD chair is arranged. Brief History: Patient is a 48-year-old that presents emergency room for dialysis. Patient states her last dialysis on Saturday. Patient states she's had 7 treatments at [facility] and was discharged home from [facility] and they told her to go to a local ER for more treatments. Patient denies any physical complaints. Patient states she just simply needs to have her dialysis done. Apparently [facility] did not arrange for a HD chair. No orthopnea. No fever or chills Radiological data: CXR Hospitalist Physical exam: GENERAL: well-developed and well-nourished lying on bed appeared to be in no discomfort. HEENT: Normocephalic. Atraumatic. No conjunctival congestion or icterus. Pat ient has moist mucous membranes. NECK: Supple. Trachea midline. CHEST/LUNGS: Clear to auscultated bilaterally, breathing nonlabored. No wheezes crackles or rhonchi. HEART/CARDIOVASCULAR: Regular in rate and rhythm. S1 and S2 positive. ABDOMEN: Abdomen is soft, nontender. Patient has normal bowel sounds. SKIN: There is no rash. Warm and dry. NEURO: No focal motor deficit. Follows command. MUSCULOSKELETAL: No joint effusion EXTRIMITY: No edema, no cyanosis or clubbing. Right BKA PSYCH: Cooperative. Subjective Date of service: 01/20/19 Interval history: Patient seen and examined. Medical records and medication list reviewed. No acute event overnight noted by the RN. Patient denies any chest pain or difficulty breathing. Patient is tolerating diet. Discussed plan of care at bedside with patient. Objective - Constitutional Vitals: Vital Signs - 12hr 01/20/19 01/20/19 01/20/19 05:25 10:23 12:25 Temperature 98.3 F 98.9 F Pulse Rate 74 85 83 Respiratory 20 20 Rate Blood Pressure 144/62 160/62 144/59 O2 Sat by Pulse 99 95 Oximetry - Labs CBC & Chem 7: 01/16/19 09:12 01/18/19 06:52 Labs: Abnormal lab results 01/19/19 01/19/19 01/20/19 Range/Units 17:24 20:40 07:58 POC Glucose 196 H 189 H 115 H (70-105) 01/20/19 Range/Units 12:31 POC Glucose 189 H (70-105)
--- NOTE | 2019-01-20 16:33 | Discharge Summary ---
Providers - Providers Date of Admission: 01/16/19 11:52 Date of discharge: 01/20/19 Attending physician: EBONY LADD 01/16/19 Consult to Case Management [CONS] Routine Services Needed at Discharge: Production Planner Scheduler Other Notified:: cm Comment:: hemodialysis chair needed 01/16/19 11:52 Consult to Physician [CONS] Urgent Comment: Dr. Negro spoke with Dr. Rosales @ [phone] Consulting Provider: IRA ROSALES Physician Instructions: Reason For Exam: DIALYSIS [facility] Condition: Serious Hospital course: Brief History: Patient is a 48-year-old that presents emergency room for dialysis. Patient states her last dialysis on Saturday. Patient states she's had 7 treatments at [facility] and was discharged home from [facility] and they told her to go to a local ER for more treatments. Patient denies any physical complaints. Patient states she just simply needs to have her dialysis done. Apparently [facility] did not arrange for a HD chair. Patient was dialyzed, CM arranged for outpt HD and then she was discharged home in stable condition. Radiological data: CXR Discharge diagnosis: End stage renal disease on HD, required outpatient HD set up HTN (hypertension), with urgency, optimized bp meds T2DM (type 2 diabetes mellitus), managed with sliding scale insulin coverage A1c is 6.4 DVT prophylaxis On Heparin Disposition; discharged after HD chair is arranged. Hospitalist Physical exam: GENERAL: well-developed and well-nourished lying on bed appeared to be in no discomfort. HEENT: Normocephalic. Atraumatic. No conjunctival congestion or icterus. Patient has moist mucous membranes. NECK: Supple. Trachea midline. CHEST/LUNGS: Clear to auscultated bilaterally, breathing nonlabored. No wheezes crackles or rhonchi. HEART/CARDIOVASCULAR: Regular in rate and rhythm. S1 and S2 positive. ABDOMEN: Abdomen is soft, nontender. Patient has normal bowel sounds. SKIN: There is no rash. Warm and dry. NEURO: No focal motor deficit. Follows command. MUSCULOSKELETAL: No joint effusion EXTRIMITY: No edema, no cyanosis or clubbing. Right BKA PSYCH: Cooperative. Disposition: TO HOME OR SELFCARE Time spent for discharge: 34 minutes Core Measure Documentation - Palliative Care Palliative Care/ Comfort Measures: Not Applicable - Core Measures Any of the following diagnoses?: none Exam - Constitutional Vitals: Temp Pulse Resp BP Pulse Ox 98.9 F 83 20 144/59 95 01/20/19 12:25 01/20/19 12:25 01/20/19 12:25 01/20/19 12:25 01/20/19 12:25 Plan Activity: advance as tolerated Weight Bearing Status: Weight Bear as Tolerated Diet: diabetic, renal Follow up with: MARY BAER MD [Primary Care Provider] - 3-5 Days
[2019-01-20 18:56] VITALS: BP 152/61
--- NOTE | 2019-01-20 19:31 | Progress Note ---
Assessment and Plan 1. ESRD: Hemodialysis start date 01/02/2019 per patient. Last dialyzed on 01/19/19. Outpatient HD chair at [facility]. Discussed with patient about Peritoneal dialysis but she wants to continue PD. 2. FEN: Euvolemic. Monitor. 3. Anemia: Epogen with HD. 4. Hypertension: Losartan. 5. DM type 2. Subjective Date of service: 01/20/19 Interval history: Patient was seen and examined at the bedside. Doing ok. Objective - Vital Signs Vital signs: Vital Signs - 12hr 01/20/19 01/20/19 01/20/19 10:23 12:25 16:52 Temperature 98.9 F 98.2 F Pulse Rate 85 83 78 Respiratory 20 20 Rate Blood Pressure 160/62 144/59 152/61 O2 Sat by Pulse 95 100 Oximetry - General Appearance General appearance: well-developed, well-nourished, appears stated age, obese, other (no distress, R IJ tunnel catheter) EENT: ATNC, PERRL, mucous membranes moist, hearing intact, vision intact Neck: supple Respiratory: Present: Clear to Ascultation Cardiology: regular, S1S2, no murmurs Gastrointestinal: normoactive bowel sounds, no tenderness, no distended Integumentary: no rash, warm and dry Neurologic: no focal deficit, no asterixis, alert and oriented x3 Musculoskeletal: other (L arm AVF) Psychiatric: cooperative - Lab 01/16/19 09:12 01/18/19 06:52 Most recent lab results Calcium 8.3 mg/dL (8.4-10.2) L 01/18/19 06:52 Phosphorus 5.00 mg/dL (2.5-4.5) H 01/16/19 Unknown Medications & Allergies - Medications Allergies/Adverse Reactions: Allergies No Known Allergies Allergy (Unverified 04/26/16 09:34) Home Medications: Home Medications Medication Instructions Recorded Confirmed Last Taken Type Calcium Acetate [Phoslo] 1,334 mg PO TID 01/19/19 01/19/19 Unknown History Isosorbide Mononitrate 30 mg PO QDAY 01/19/19 01/19/19 Unknown History Linagliptin [Tradjenta] 5 mg PO QDAY 01/19/19 01/19/19 Unknown History Losartan [Cozaar] 50 mg PO QDAY 01/19/19 01/19/19 Unknown History Metoprolol [Lopressor TAB] 50 mg PO Q12HR 01/19/19 01/19/19 Unknown History Torsemide [Demadex] 100 mg PO QDAY 01/19/19 01/19/19 Unknown History amLODIPine [Norvasc] 10 mg PO QDAY 01/19/19 01/19/19 Unknown History Active Medications: Generic Name Dose Route Start Last Admin Trade Name Freq PRN Reason Stop Dose Admin Acetaminophen 650 mg 01/16/19 19:33 Tylenol PO Q4H PRN Pain MILD(1-3)/Fever >100.5/ZURITA Epoetin Santos 10,000 unit 01/16/19 13:37 Procrit SUB-Q LENCHO PRN hemodialysis Famotidine 10 mg 01/16/19 22:00 01/20/19 10:15 Pepcid PO 10 mg BID TIMMY Administration Glipizide 5 mg 01/17/19 08:00 01/20/19 10:18 Glucotrol Xl PO 5 mg QDDIAB TIMMY Administration Heparin Sodium (Porcine) 2,000 unit 01/16/19 13:34 Heparin 10,000 Units/10 Ml IV LENCHO PRN hemodialysis Heparin Sodium (Porcine) 1,000 unit 01/16/19 13:34 Heparin 10,000 Units/10 Ml IV LENCHO PRN hemodialysis Heparin Sodium (Porcine) 5,000 unit 01/16/19 22:00 01/20/19 10:15 Heparin SUB-Q 5,000 unit Q12HR TIMMY Administration Hydralazine HCl 10 mg 01/19/19 14:09 Apresoline IV Q4HR PRN BP >160/100 Hydromorphone HCl 0.5 mg 01/16/19 19:33 Dilaudid IV Q3H PRN Pain , Severe (7-10) Sodium Chloride 100 mls @ 999 mls/hr 01/19/19 12:17 Nacl 0.9% IV LENCHO PRN Hypotension Insulin Human Lispro 0 unit 01/17/19 07:30 01/20/19 17:58 Humalog SUB-Q 2 unit ACHS TIMMY Administration Protocol Metoclopramide HCl 5 mg 01/16/19 19:33 Reglan IV Q6H PRN Nausea And Vomiting Ondansetron HCl 4 mg 01/16/19 19:33 Zofran IV Q8H PRN Nausea And Vomiting Sodium Chloride 10 ml 01/16/19 22:00 01/20/19 10:19 Sodium Chloride Flush Syringe 10 Ml IV 10 ml BID TIMMY Administration Sodium Chloride 10 ml 01/16/19 19:33 Sodium Chloride Flush Syringe 10 Ml IV PRN PRN LINE FLUSH Valsartan 160 mg 01/19/19 22:00 01/20/19 10:23 Diovan PO 160 mg BID TIMMY Administration
== END 2019-01-20 19:20 | disposition home or self-care (01) ==
LOC: ED 08:44 → 3A 11:52
PROVIDERS: ADMIT Internal Medicine; ATTEND Internal Medicine
DX: I12.0 Hypertensive chronic kidney disease with stage 5 chronic kidney disease or end stage renal disease (principal); E11.22 Type 2 diabetes mellitus with diabetic chronic kidney disease; N18.6 End stage renal disease; D64.9 Anemia, unspecified; Z98.890 Other specified postprocedural states; Z99.2 Dependence on renal dialysis; Z79.899 Other long term (current) drug therapy
CPT/HCPCS: 36415; 71046; 80048; 80053; 80074; 82962; 83036; 83880; 84100; 85027; 87116; 96372; 99284; 99406; G0257; G0378; J1644; J7030; J1815